=== PATIENT | male | born 1960 | race Caucasian/White ===

== ENCOUNTER 2017-04-23 10:10 | Emergency (ER) | payer MEDICARE, MEDICAID ==
[~2017-04-23] VITALS: Ht 170.2 cm; Wt 113.6 kg
[2017-04-23] MEDS ORDERED: INSUH10VL SC (10:31)
[2017-04-23] MEDS ORDERED: FURO8SOL PO (10:31)
[2017-04-23] MEDS ORDERED: LISI-542 PO (10:31)
[2017-04-23] MEDS ORDERED: FAMO40TA3 PO (10:31)
[2017-04-23] MEDS ORDERED: ASPI1TAB PO (10:31)
[2017-04-23] MEDS ORDERED: TRAM50TA2 PO (10:31)
[2017-04-23] MEDS ORDERED: FOLI5INJ2 PO (10:31)
[2017-04-23] MEDS ORDERED: CARV6.25 PO (10:31)
[2017-04-23] MEDS ORDERED: PANT40TA2 PO (10:31)
[2017-04-23] MEDS ORDERED: DOCQ100C PO (10:31)
[2017-04-23] MEDS ORDERED: ATOR80TA59 PO (10:31)
[2017-04-23] MEDS ORDERED: AMIO200T37 PO (10:31)
[2017-04-23] MEDS ORDERED: INSULANT SC (10:31)
[2017-04-23 11:33] LABS: BASO % 0.4 % (0.0-1.0); EOS # 0.1 10^3/uL (0.0-0.50); IMMATURE GRANULOCYTE % 0.9 % (0-0); LYMPH # 1.4 10^3/uL (1.5-4.5); LYMPH % 16.9 % (24.0-44.0); MEAN CORPUSCULAR HEMOGLOBIN 22.8 pg (27.0-33.0); MEAN CORPUSCULAR HGB CONC 29.5 g/dl (32.0-36.5); MEAN CORPUSCULAR VOLUME 77.5 fl (80.0-96.0); MONO # 0.6 10^3/uL (0.0-0.8); MONO % 7.9 % (0.0-5.0); NEUTROPHILS # 5.9 10^3/uL (1.8-7.7); NEUTROPHILS % 72.9 % (36.0-66.0); PLATELET COUNT, AUTOMATED 101 10^3/uL (150-450); RED CELL DISTRIBUTION WIDTH 17.7 % (11.5-14.5); WHITE BLOOD COUNT 8.1 10^3/uL (4.0-10.0)
[2017-04-23 12:03] LABS: ALKALINE PHOSPHATASE 83 U/L (45-117); ALT/SGPT 19 U/L (12-78); ANION GAP 7 MEQ/L (8-16); AST/SGOT 30 U/L (15-37); BILIRUBIN,DIRECT < 0.1 MG/DL (0.0-0.2); BILIRUBIN,TOTAL 0.2 MG/DL (0.2-1.0); BLOOD UREA NITROGEN 16 MG/DL (7-18); CALCIUM LEVEL 9.1 MG/DL (8.5-10.1); CARBON DIOXIDE LEVEL 26 MEQ/L (21-32); CHLORIDE LEVEL 106 MEQ/L (98-107); CREATININE FOR GFR 0.99 MG/DL (0.70-1.30); GLOMERULAR FILTRATION RATE > 60.0 (>56); GLUCOSE, FASTING 193 MG/DL (70-105); POTASSIUM SERUM 4.5 MEQ/L (3.5-5.1); SODIUM LEVEL 139 MEQ/L (136-145); TOTAL PROTEIN 7.3 GM/DL (6.4-8.2)
[2017-04-23 12:40] VITALS: BP 137/71
--- NOTE | 2017-04-27 07:48 | ECGEPIP ---
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
== END 2017-04-23 12:46 | disposition home or self-care (01) ==
LOC: M ED 10:10
DX: D64.9 Anemia, unspecified (principal); Z95.0 Presence of cardiac pacemaker; Z87.19 Personal history of other diseases of the digestive system; I48.91 Unspecified atrial fibrillation; I50.9 Heart failure, unspecified; I25.10 Atherosclerotic heart disease of native coronary artery without angina pectoris; I25.2 Old myocardial infarction; E11.9 Type 2 diabetes mellitus without complications; I10 Essential (primary) hypertension; Z87.891 Personal history of nicotine dependence; Z79.82 Long term (current) use of aspirin; Z79.4 Long term (current) use of insulin; Z79.899 Other long term (current) drug therapy